=== PATIENT | male | born 1960 | race Caucasian/White ===

== ENCOUNTER → 2017-12-12 15:25 | Outpatient (CLI) | payer OTHER, SELFPAY ==
--- NOTE | 2017-12-12 15:32 | XR_ITS ---
EXAM: XR thoracic spine 3V HISTORY: ITS.REASON: POSTERIOR THORACIC CHEST PAIN, SHORTNESS OF AIR Comparison: None FINDINGS: Normal alignment. No fracture or dislocation evident. There is mild multilevel degenerative disc disease from T6 to T12. There is slight decrease in height anteriorly of T10 which appears chronic. No lytic or blastic change. Multilevel anterior osteophytes are present from T6 to T12 IMPRESSION: Thoracic spondylosis, no acute finding. Mild chronic wedging of T10
--- NOTE | 2017-12-12 15:32 | XR_ITS ---
XR chest 2V HISTORY: ITS.REASON: POSTERIOR THORACIC CHEST PAIN, SHORTNESS OF AIR ORDERING PHYSICIAN: Rickie Jang PATIENT AGE: 57 years COMPARISON: None FINDINGS: There is elevation of left hemidiaphragm. Unremarkable cardiovascular structures. Lungs are clear bilaterally. No effusions or infiltrates. There are degenerative changes of the thoracic spine. IMPRESSION: Elevated left hemidiaphragm, no acute finding
== END ==
PROVIDERS: PCP Internal Medicine; Visit Provider Internal Medicine
DX: R07.89 Other chest pain (principal); M54.6 Pain in thoracic spine; R06.02 Shortness of breath
CPT/HCPCS: 71046; 72072

== ENCOUNTER → 2017-12-19 15:07 | Outpatient (CLI) | payer OTHER, SELFPAY ==
[2017-12-19 16:10] LABS: Blood Urea Nitrogen 16 mg/dL (7-18); Creatinine,Serum 0.75 mg/dL (0.70-1.30); Estimated Glomerular Filt Rate 108 ml/min (>60); GFR (African American) 130 ML/MIN (>60)
== END ==
PROVIDERS: PCP Internal Medicine; Visit Provider Internal Medicine
DX: M54.6 Pain in thoracic spine (principal); R07.9 Chest pain, unspecified; Z85.820 Personal history of malignant melanoma of skin
CPT/HCPCS: 36415; 82565; 84520

== ENCOUNTER → 2017-12-26 08:35 | Outpatient (CLI) | payer OTHER, SELFPAY ==
--- NOTE | 2017-12-26 08:44 | CT_ITS ---
CT thoracic spine wo con INDICATION: ITS.REASON: THORACIC PAIN ORDERING PHYSICIAN: Rickie Jang PATIENT AGE: 57 years COMPARISON: None TECHNIQUE: Axial images are obtained without contrast. Sagittal and coronal reformatted images are reviewed as well. All CT scans at the facility use one or more dose reduction, viz: automated exposure control, ma/kV adjustment per patient size (including targeted exams where dose is matched to indication, i.e. head), or iterative reconstruction technique. FINDINGS: There is normal alignment. No acute fracture or dislocation is evident. There is mild multilevel thoracic spondylosis with slight decrease in the disc space and endplate osteophytes from T2 to T12. There is slight decrease in height anteriorly at T8-T12. This appears chronic. No cortical disruption is evident. Right anterior lateral bridging osteophytes are present from T3 to T12. No lytic or blastic change. No soft tissue abnormalities. IMPRESSION: 1. Mild multilevel spondylosis with degenerative disc disease and osteophytosis with mild chronic decrease in height at T8-T12. 2. No acute fracture. 3. No lytic or blastic change
--- NOTE | 2017-12-26 08:45 | CT_ITS ---
CT chest w con HISTORY: ITS.REASON: CHEST PAIN, HX MALIGNANT MELANOMA ORDERING PHYSICIAN: Rickie Jang PATIENT AGE: 57 years COMPARISON: None TECHNIQUE: Axial images obtained following the administration of 75 mL of Isovue 370 . Sagittal, and coronal reformatted images are also generated and reviewed. All CT scans at the facility use one or more dose reduction, viz: automated exposure control, ma/kV adjustment per patient size (including targeted exams where dose is matched to indication, i.e. head), or iterative reconstruction technique. FINDINGS: No mediastinal or hilar mass or adenopathy is evident. There are few scattered small nodes in the mediastinum. Coronary artery and mitral valve annular calcifications are noted. Normal heart size. No evidence of pericardial effusion. There are a few scattered subpleural nodular opacities 2 to 3 mm. These are nonspecific some of which are calcified. Minimal atelectatic or fibrotic changes are present in the lingula. A calcified granulomas present in the left lung base. No suspicious nodules are evident. No effusions or infiltrates. No acute bony anomalies. Upper abdominal images shows fatty liver with an oval area of increased density in the right hepatic lobe anteriorly. This could be due to some focal fatty sparing of the liver versus a hemangioma. IMPRESSION: 1. No convincing evidence of metastatic disease. 2. There are scattered subpleural 2 to 3 mm nodular opacity some of which are calcified and may be related to old granulomatous disease. Consider 6 month follow-up in this patient with history of melanoma to confirm stability. 3. Coronary artery calcification. 4. Other nonacute findings as described above
== END ==
PROVIDERS: Family Provider Internal Medicine; PCP Internal Medicine; Visit Provider Internal Medicine
DX: M54.6 Pain in thoracic spine (principal); R07.9 Chest pain, unspecified; Z85.820 Personal history of malignant melanoma of skin
CPT/HCPCS: 71260; 72128; Q9967

== ENCOUNTER → 2018-01-11 06:21 | Outpatient (CLI) | payer OTHER, SELFPAY ==
--- NOTE | 2018-01-11 06:22 | CI_ITS ---
Cerebrovascular Exam Indications: 785.9 Bruit. IMPRESSIONS 1. The bilateral vertebral arteries are patent with normal antegrade flow. 2. Study suggests less than 20% stenosis involving the right internal carotid artery and the left internal carotid artery. History: A bruit of the left carotid artery. A bruit of the right carotid artery. Coronary artery disease. Risk factors: Former smoker - years since quittinyr. Hypertension. Hyperlipidemia. Carotid duplex study. Complete study and Doppler flow study including spectral analysis, color and becker scale imaging. Location: Vascular laboratory. Patient status: Outpatient. Tables: Arterial flow: + +--------+--------+ Location V sys V ed + +--------+--------+ Right CCA - proximal 115cm/s 25.1cm/s + +--------+--------+ Right CCA - distal 69.8cm/s 24.5cm/s + +--------+--------+ Right ECA 146cm/s -------- + +--------+--------+ Right ICA - proximal 37.3cm/s 16.2cm/s + +--------+--------+ Right ICA - mid 54.2cm/s 23.9cm/s + +--------+--------+ Right ICA - distal 44.7cm/s 18.3cm/s + +--------+--------+ Right vertebral 38.5cm/s -------- + +--------+--------+ Left CCA - proximal 99cm/s 20.4cm/s + +--------+--------+ Left CCA - distal 111cm/s 24.4cm/s + +--------+--------+ Left ECA 117cm/s -------- + +--------+--------+ Left ICA - proximal 57.8cm/s 15.7cm/s + +--------+--------+ Left ICA - mid 49.9cm/s 21.5cm/s + +--------+--------+ Left ICA - distal 58.2cm/s 24.9cm/s + +--------+--------+ Left vertebral 38.1cm/s -------- + +--------+--------+ Velocity ratios: + + + + + + Right, V sys Right, V ed Left, V sys Left, V ed + + + + + + Max ICA/dist CCA 0.78 0.98 0.52 1.02 + + + + + + (Report amended ) Electronically signed by: Jovani Barros [id number]
--- NOTE | 2018-01-11 06:22 | CA_ITS ---
PROCEDURE: 2-D M-mode and color Doppler study INDICATIONS FOR THE TEST: Chest pain COPD Heart Murmur Tobacco Smokinghx Palpitations Fatigue Syncope Edema Hypertension+Diabetes Mellitus+ Rheumatic Fever SOB+APONTE Obesity Hyperlipidemia+ Family History HD Additional History Coronary artery calcification seen on CT, melanoma, GERD, hepatitis PATIENT INFORMATION HEIGHT: 69 WEIGHT: 309 GENDER: Male B/P: 144/83 2-D/M-MODE INTERPRETATION: 2-D MEASUREMENTS OBSERVED VALUES IN CMS Right Ventricular Dimension (RVDd) 2.8 Interventricular Septum (Thickness)(IVsd) 1.2 Left Ventricular Internal Dimensions(LVIDd) 3.0 Left Ventricular Posterior Wall (Thickness)(LVPWd) 1.2 Aortic Root 3.1 Aortic Cusp Separation 2.3 Left Atrial Dimensions (LAD) 3.8 2D 1. Technically difficult study because of the patient's factor and poor acoustic windows, Definity contrast was utilized to delineate endocardial surfaces. 2. Left atrium is mildly enlarged, left ventricle is normal size, mild concentric left ventricular hypertrophy, visually estimated ejection fraction 55% with no regional wall motion abnormality. 3. The right atrium is normal size, right ventricle is mildly enlarged with normal contractility. 4. The aortic valve is minimally thickened and fibrosed. 5. The mitral and tricuspid valve are grossly normal. 6. No significant pericardial effusion noted. 7. Pulmonic valve is poorly visualized. DOPPLER INTERROGATION: Doppler interrogation of the aortic, mitral and tricuspid valvular presence of mild mitral and tricuspid regurgitation, tricuspid regurgitation jet velocity is inadequate for calculation of the right ventricular systolic pressure, grade 1 diastolic dysfunction seen with tissue Doppler evidence of raised left atrial pressure. CONCLUSION: 1. Mildly enlarged left atrium, normal left ventricular size, mild concentric left ventricular hypertrophy, visually estimated ejection fraction 55% with no regional wall motion abnormality, grade 1 diastolic dysfunction seen with tissue Doppler evidence of raised left atrial pressure. 2. Mild mitral and tricuspid regurgitation 3. No significant pericardial effusion noted.
--- NOTE | 2018-01-11 06:22 | NM_ITS ---
History and Indications: Coronary artery disease, hypertension, diabetes, hyperlipidemia, family history shortness of breath and fatigue Procedure: Patient exercised on Garret protocol 6 minutes, resting heart rate was 79 beats per resting blood pressure 171/97, with exercise maximum heart rate achieved was its per minute which is equal to 93% of the maximum predicted heart rate and a blood pressure was 220/80. Test was started due to shortness of breath and fatigue patient denied complained of chest pain. Patient has adequate exercise capacity achieved 7mets of workload on treadmill, the blood pressure response to exercise was hypertensive. Electrocardiogram: Resting electrocardiogram showed sinus rhythm, with exercise occasional premature ventricular complexes seen, less than 1.[address] segment depression noted from the baseline EKG. The EKG portion of the exercise Myoview is negative for ischemia. Cardiac stress and resting SPECT images: Cardiac stress and rest SPECT images were obtained using technetium 99 Myoview 31.8 mCi stress and 10.5 mCi at rest gated SPECT further analysis of segmental wall motion and calculation of the ejection fraction also done. Cardiac stress and rest images show decreased tracer activity in the inferior and posterobasal wall which improves on the resting images suggestive of reversible ischemia, computer derived ejection fraction 54% with no regional wall motion abnormality, right ventricle is normal size and contractility. Conclusion: 1. The EKG portion of the exercise Myoview is negative for ischemia, patient has adequate exercise capacity achieved 7mets of workload on treadmill, the blood pressure response to exercise was hypertensive, there was no exercise-induced chest discomfort, test was started due to shortness of breath 2. Scintigraphic evidence of mild reversible ischemia involving the inferior and posterobasal wall, right ventricle is normal size and contractility. Computer derived ejection fraction is 54% with no regional wall motion abnormality. 3. Abnormal exercise Myoview study.
--- NOTE | 2018-01-11 07:12 | HMH.ITSHM ---
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 []METFORMIN GLIMEPIRIDE ATORVASTATIN NAPROXEN
== END ==
PROVIDERS: PCP Internal Medicine; Visit Provider Internal Medicine Cardiovascular Disease
DX: E11.9 Type 2 diabetes mellitus without complications (principal); E78.5 Hyperlipidemia, unspecified; I10 Essential (primary) hypertension; I25.10 Atherosclerotic heart disease of native coronary artery without angina pectoris; K21.9 Gastro-esophageal reflux disease without esophagitis; R09.89 Other specified symptoms and signs involving the circulatory and respiratory systems; Z85.820 Personal history of malignant melanoma of skin
CPT/HCPCS: 78452; 93017; 93306; 93880; A9502

== ENCOUNTER → 2018-01-13 10:34 | Outpatient (CLI) | payer OTHER, SELFPAY ==
[2018-01-13 13:22] LABS: Alanine Aminotransferase 51 U/L (12-78); Albumin Level 3.7 gm/dL (3.4-5.0); Alkaline Phosphatase 81 U/L (46-116); Anion Gap 15.6 mEq/L (5-15); Aspartate Amino Transferase 29 U/L (15-37); Bilirubin,Total 0.6 mg/dL (0.2-1.0); Blood Urea Nitrogen 9 mg/dL (7-18); Calcium 8.8 mg/dL (8.5-10.1); Carbon Dioxide 28 mmol/L (21.0-32.0); Chloride 100 mmol/L (98-107); Chol/HDL Ratio 3.8 (1-3.5); Cholesterol 123 mg/dL (140-200); Estimated Glomerular Filt Rate 139 ml/min (>60); GFR (African American) 169 ML/MIN (>60); Globulin 3.6 gm/dl (1.3-3.2); Glucose 100 mg/dL (74-106); HDL Cholesterol 32 mg/dL (27-67); LDL Cholesterol 67 mg/dL (0-130); Sodium 139 mmol/L (136-145); Total Protein,Serum 7.3 gm/dL (6.4-8.2); Triglycerides 122 mg/dL (30-200); VLDL Cholesterol 24 mg/dL (0-40)
[2018-01-13 13:23] LABS: Potassium 4.6 mmoL/L (3.5-5.1)
[2018-01-14 12:16] LABS: Microalbumin, Urine <3.0 ug/mL (Not Estab.)
== END ==
PROVIDERS: PCP Internal Medicine; Visit Provider Internal Medicine
DX: E11.9 Type 2 diabetes mellitus without complications (principal); E66.01 Morbid (severe) obesity due to excess calories; I10 Essential (primary) hypertension
CPT/HCPCS: 36415; 80053; 80061; 82043; 83036

== ENCOUNTER → 2018-01-30 15:04 | Outpatient (CLI) | payer OTHER, SELFPAY | PROVIDERS: PCP Internal Medicine; Visit Provider Internal Medicine Cardiovascular Disease | DX: R06.83 Snoring (principal); E11.9 Type 2 diabetes mellitus without complications; E78.5 Hyperlipidemia, unspecified; I10 Essential (primary) hypertension; I25.10 Atherosclerotic heart disease of native coronary artery without angina pectoris; K21.9 Gastro-esophageal reflux disease without esophagitis; R09.89 Other specified symptoms and signs involving the circulatory and respiratory systems; Z85.820 Personal history of malignant melanoma of skin | CPT/HCPCS: 95806 ==

== ENCOUNTER → 2018-05-01 13:47 | Outpatient (CLI) | payer BC, SELFPAY | PROVIDERS: Visit Provider Specialist | DX: G47.33 Obstructive sleep apnea (adult) (pediatric) (principal) | CPT/HCPCS: 94762 ==

== ENCOUNTER → 2019-11-09 08:47 | Outpatient (CLI) | payer BC, SELFPAY ==
--- NOTE | 2019-11-09 08:51 | XR_ITS ---
PROCEDURE: XR FOOT WT BEARING RT 3V CLINICAL INDICATION: pain ball of right foot COMPARISON: CR XR FOOT WT BEARING LT 3V from 11/09/2019 FINDINGS: There is moderate hallux valgus with partial subluxation of the proximal phalanx in relationship to the head of the 1st metatarsal. There is soft tissue prominence over the metatarsal head is consistent with a bunion. The remaining metatarsals in all of phalanges appear intact. There is flattening of the plantar arch and there is a small spur of the calcaneus at the insertion of the plantar tendon. The joint spaces are well-preserved. No significant degenerative/arthritic changes. No erosive changes evident. IMPRESSION: Mild to moderate hallux valgus with pes planus Dictated by: Dr. Jerry Muñoz MD 11/09/2019 10:45 Dr. Jerry Muñoz MD in [place] 11/09/2019 10:45
--- NOTE | 2019-11-09 08:51 | XR_ITS ---
PROCEDURE: XR FOOT WT BEARING LT 3V CLINICAL INDICATION: pain comparison views left foot, patient complaining of right foot pain but no left foot pain COMPARISON: CR XR FOOT WT BEARING RT 3V from 11/09/2019 FINDINGS: No fracture or dislocation. No lytic or blastic change. There is normal mineralization. The joint spaces are well-preserved. No significant degenerative/arthritic changes. No erosive changes evident. Other findings:There is a small spur of the calcaneus at the insertion of the plantar tendon. There is mild flattening of the plantar arch. IMPRESSION: Small calcaneal spur and mild pes planus but less than right foot. Dictated by: Dr. Jerry Muñoz MD 11/09/2019 10:47 Dr. Jerry Muñoz MD in [place] 11/09/2019 10:47
== END ==
PROVIDERS: PCP Internal Medicine; Visit Provider Podiatrist
DX: M79.673 Pain in unspecified foot (principal)
CPT/HCPCS: 73630

== ENCOUNTER 2020-02-02 10:16 | Emergency (ER) | payer BC, SELFPAY ==
[2020-02-02 10:26] VITALS: BP 186/84; PULSE 84; RESP 16; O2SAT 98; BMI 44.3
--- NOTE | 2020-02-02 10:41 | HMH.EDUTC ---
[facility] [place] Clinical Impression: Encounter for laboratory testing for COVID-19 virus, Exposure to COVID-19 virus Disposition: Home, Self-Care Condition on Discharge: Good Instructions: Preventing the Spread of Coronavirus Discharge Instructions Additional Instructions: *Monitor Temp, Over the counter Motrin or Tylenol as directed/as needed Tylenol every 4 hours and Motrin every 6 hours (as long as your family doctor has told you that you can take it) for fever or pain. and straight to ER if unable to lower temp less than 101.0 after medication given *Warm salt water gargles may help to soothe the throat *Throat Lozenges *Warm fluids like tea with honey may help to soothe the throat *Sleep elevated *Humidifier/Vaporizer Follow up IMMEDIATELY for new or worsening symptoms or no Noticeable improvement over the next 48-72 hours. 911 for difficulty breathing or swallowing You was tested for today for COVID19 your test result should be back in the next 24-48 hours, you may call to the [facility] later today or tomorrow to see if your test results are back and the result [phone] [facility] hours are 9am-9pm You was given a handout with instructions for Self Quarantine and Self isolation for while you wait on test results and what to do if they are positive If you are positive the Health Dept will be contacting you also Referrals: Rickie Jang [Primary Care Provider] - As needed Forms: Work/School Release Time of Disposition: 10:42 Medical Decision Making - Jorgito Inquiry Pt receiving controlled substance: No Jorgito was queried for this patient: No Vital Signs: 02/02/20 10:26 Pulse Rate [Radial] 84 Respiratory Rate 16 Blood Pressure [Right Arm] 186/84 H Blood Pressure Mean [Right Arm] 118 Blood Pressure Source [Right Arm] Automatic Cuff Blood Pressure Position [Right Arm] Sitting 02 Sat by Pulse Oximetry 98 Oxygen Delivery Method Room Air Orders (Tests/Meds): ORDERS Category Date Time Status Covid-19 Nasal PCR ([facility]) Routine Lab 02/02/20 10:17 Ordered [facility] [place] - General Stated complaint: Covid test Time Seen by Provider: 02/02/20 10:41 Mode of Arrival: Ambulatory Source of Information: Patient Limitations: No Limitations Description of Symptoms (Recalled from Triage Doc. by RN): covid test. no symptoms HEENT Symptoms (Recalled from RN notes): No Resp Symptoms (Recalled from RN notes): No Skin Symptoms (Recalled from RN notes): No MS Symptoms (Recalled from RN notes): No Functional Status (Recalled from RN notes): wnl - History of Present Illness Provider Complaint: Patient state that he was recently around a friend that has since tested positive for COVID States that he isnt having any symptoms but wanted to get tested for COVID due to exposure - Related Data Home Medications Medication Instructions Recorded Confirmed atorvastatin 10 mg tablet 10 mg PO DAILY 12/29/17 01/01/20 metformin 500 mg tablet 500 mg PO BID 12/29/17 01/01/20 aspirin 81 mg tablet,delayed 81 mg PO DAILY 01/31/18 01/01/20 release glimepiride 4 mg tablet 4 mg PO DAILY tab 04/30/19 01/01/20 Previous Rx's Medication Instructions Recorded lisinopril 10 mg tablet 10 mg PO DAILY #90 tab 07/12/19 diclofenac sodium 1 % topical gel 4 g TOPICAL QID PRN 30 Days #100 g 01/01/20 metoprolol succinate 100 mg 100 mg PO DAILY #90 tab 01/17/20 tablet,extended release 24 hr Allergies Allergy/AdvReac Type Severity Reaction Status Date / Time No Known Allergies Allergy Verified 01/10/20 13:23 - Worker's Comp Is this a Worker's Comp case?: No [facility] History - Hepatitis A Screen Drug use history?: No High risk sexual behaviors?: No History of sexually transmitted infection?: No Currently employed?: No Childcare worker?: No Do you have indoor plumbing?: Yes Do you have electricity?: Yes Attestation statement:: This patient has been screened for Hepatitis A risk factors. I have reviewed the patient's past medica
[2020-02-02 10:55] VITALS: BP 186/84; PULSE 84; RESP 16; TEMP 36.9; O2SAT 98
[2020-02-02 17:06] LABS: Adenovirus,PCR Not Detected (NotDetected); Bordetella Pertussis Not Detected (NotDetected); Chlamydophila Pneumoniae, PCR Not Detected (NotDetected); Coronavirus 229E Not Detected (NotDetected); Coronavirus NL63 Not Detected (NotDetected); Coronavirus OC43 Not Detected (NotDetected); Coronovirus HKU1,PCR Not Detected (NotDetected); Human Metapneumovirus Not Detected (NotDetected); Influenza A, PCR Not Detected (NotDetected); Influenza AH1, 2009 Not Detected (NotDetected); Influenza AH1, PCR Not Detected (NotDetected); Influenza AH3,PCR Not Detected (NotDetected); Influenza B, PCR Not Detected (NotDetected); Mycoplasma Pneumoniae, PCR Not Detected (NotDetected); Parainfluenza 1, PCR Not Detected (NotDetected); Parainfluenza 2, PCR Not Detected (NotDetected); Parainfluenza 3, PCR Not Detected (NotDetected); Parainfluenza 4, PCR Not Detected (NotDetected); Respiratory Syncytial Virus Not Detected (NotDetected); Rhinovirus/Enterovirus Not Detected (NotDetected)
[2020-02-02 17:07] LABS: Coronavirus 19, PCR Detected (NotDetected)
--- NOTE | 2020-02-02 17:14 | PC.NURSE ---
Patient notified of positive COVID results. Educated on quarantine.
== END 2020-02-02 10:56 | disposition home or self-care (01) ==
PROVIDERS: Emergency Provider Nurse Practitioner; PCP Internal Medicine
DX: U07.1 COVID-19 (principal); E11.9 Type 2 diabetes mellitus without complications; K21.9 Gastro-esophageal reflux disease without esophagitis; E78.5 Hyperlipidemia, unspecified; I10 Essential (primary) hypertension; Z79.899 Other long term (current) drug therapy
CPT/HCPCS: 87581; 87633; 87798; 99201; U0003

== ENCOUNTER 2020-02-11 10:27 | Emergency (ER) | payer BC, SELFPAY ==
[2020-02-11 11:45] VITALS: BP 167/98; PULSE 87; RESP 18; TEMP 37.1; O2SAT 98; BMI 43.2
--- NOTE | 2020-02-11 11:48 | HMH.EDUTC ---
[facility] [place] Disposition Clinical Impression: Encounter for laboratory testing for COVID-19 virus Disposition: Home, Self-Care Condition on Discharge: Good Instructions: Preventing the Spread of Coronavirus Discharge Instructions Additional Instructions: *Monitor Temp, Over the counter Motrin or Tylenol as directed/as needed Tylenol every 4 hours and Motrin every 6 hours (as long as your family doctor has told you that you can take it) for fever or pain. and straight to ER if unable to lower temp less than 101.0 after medication given *Warm salt water gargles may help to soothe the throat *Throat Lozenges *Warm fluids like tea with honey may help to soothe the throat *Sleep elevated *Humidifier/Vaporizer Follow up IMMEDIATELY for new or worsening symptoms or no Noticeable improvement over the next 48-72 hours. 911 for difficulty breathing or swallowing You were tested for today for COVID19 your test result should be back in the next 24-48 hours, you may call to the [facility] to see if your test results are back in the next 48 hours [phone] [facility] hours are 9am-9pm You was given a handout with instructions for Self Quarantine and Self isolation for while you wait on test results and what to do if they are positive If you are positive the Health Dept will be contacting you also Referrals: Rickie Jang [Primary Care Provider] - As needed Forms: Work/School Release Time of Disposition: 11:50 Medical Decision Making - Jorgito Inquiry Pt receiving controlled substance: No Jorgito was queried for this patient: No Vital Signs: 02/11/20 11:45 Temperature 98.7 F Temperature Source Oral Pulse Rate [Left] 87 Respiratory Rate 18 Blood Pressure [Right Arm] 167/98 H Blood Pressure Mean [Right Arm] 121 Blood Pressure Source [Right Arm] Automatic Cuff Blood Pressure Position [Right Arm] Sitting 02 Sat by Pulse Oximetry 98 Oxygen Delivery Method Room Air Orders (Tests/Meds): ORDERS Category Date Time Status Covid-19 Nasal PCR Sendout [facility] 02/11/20 11:28 Ordered [facility] [place] HPI - General Stated complaint: wants covid test Time Seen by Provider: 02/11/20 11:48 Mode of Arrival: Ambulatory Source of Information: Patient Limitations: No Limitations Description of Symptoms (Recalled from Triage Doc. by RN): Covid test asymptomatic-recently positive but need test for work HEENT Symptoms (Recalled from RN notes): No Resp Symptoms (Recalled from RN notes): No Skin Symptoms (Recalled from RN notes): No MS Symptoms (Recalled from RN notes): No Functional Status (Recalled from RN notes): wnl - History of Present Illness Provider Complaint: Patient state that he recently tested positive for COVID and has been in quarantine State that his quarantine is up and his work wanted him to get tested again for COVID Denies any symptoms - Related Data Home Medications Medication Instructions Recorded Confirmed atorvastatin 10 mg tablet 10 mg PO DAILY 12/29/17 01/01/20 metformin 500 mg tablet 500 mg PO BID 12/29/17 01/01/20 aspirin 81 mg tablet,delayed 81 mg PO DAILY 01/31/18 01/01/20 release glimepiride 4 mg tablet 4 mg PO DAILY tab 04/30/19 01/01/20 Previous Rx's Medication Instructions Recorded lisinopril 10 mg tablet 10 mg PO DAILY #90 tab 07/12/19 diclofenac sodium 1 % topical gel 4 g TOPICAL QID PRN 30 Days #100 g 01/01/20 metoprolol succinate 100 mg 100 mg PO DAILY #90 tab 01/17/20 tablet,extended release 24 hr Allergies Allergy/AdvReac Type Severity Reaction Status Date / Time No Known Allergies Allergy Verified 01/10/20 13:23 - Worker's Comp Is this a Worker's Comp case?: No Is this an H Worker's Comp?: No Is this a [place] Worker's Comp?: No [facility] History - Hepatitis A Screen Drug use history?: No High risk sexual behaviors?: No History of sexually transmitted infection?: No Currently employed?: No Childcare worker?: No Do you have indoor plumbing?: Yes Do you have electricity?: Yes
[2020-02-11 11:49] VITALS: BP 167/98; PULSE 87; RESP 18; TEMP 37.1; O2SAT 98
[2020-02-12 12:57] LABS: Covid-19 Nasal PCR Sendout Lex Not Detected
== END 2020-02-11 12:15 | disposition home or self-care (01) ==
PROVIDERS: Emergency Provider Nurse Practitioner; PCP Internal Medicine
DX: Z20.828 Contact with and (suspected) exposure to other viral communicable diseases (principal)
CPT/HCPCS: 99201; U0004

== ENCOUNTER → 2020-10-22 18:25 | Outpatient (CLI) | payer BC, SELFPAY ==
[2020-10-22 19:38] LABS: Chloride 98 mmol/L (98-107)
[2020-10-22 19:39] LABS: Potassium 4.5 mmoL/L (3.5-5.1); Sodium 137 mmol/L (136-145)
[2020-10-22 19:41] LABS: Alanine Aminotransferase 46 U/L (12-78); Albumin Level 4.4 g/dl (3.5-5.0); Albumin/Globulin Ratio 1.5 (1.1-1.8); Alkaline Phosphatase 79 U/L (38-126); Anion Gap 13.5 mEq/L (5-15); Aspartate Amino Transferase 41 U/L (17-59); Bilirubin,Total 0.7 mg/dl (0.2-1.3); Blood Urea Nitrogen 12 mg/dl (9-20); Carbon Dioxide 30 mmol/L (22.0-30.0); Estimated Glomerular Filt Rate 138 ml/min (>60); GFR (African American) 167 ML/MIN (>60); Globulin 2.9 g/dL (1.3-3.2); Total Protein,Serum 7.3 g/dl (6.3-8.2)
[2020-10-22 19:42] LABS: Calcium 9.2 mg/dl (8.4-10.2); Chol/HDL Ratio 4.1 (1-3.5); Cholesterol 132 mg/dl (140-200); Glucose 115 mg/dl (74-100); HDL Cholesterol 32 mg/dl (40-60); Triglycerides 171 mg/dl (30-150); VLDL Cholesterol 34 mg/dL (0-40)
[2020-10-22 19:53] LABS: Direct LDL Cholesterol 76.83 mg/dL (100-129)
[2020-10-22 21:42] LABS: Hemoglobin A1C 8.6 % (4.0-6.0)
== END ==
PROVIDERS: Visit Provider Internal Medicine
DX: I25.10 Atherosclerotic heart disease of native coronary artery without angina pectoris (principal); I10 Essential (primary) hypertension; E78.5 Hyperlipidemia, unspecified; E11.59 Type 2 diabetes mellitus with other circulatory complications; Z79.84 Long term (current) use of oral hypoglycemic drugs
CPT/HCPCS: 80053; 80061; 83036

== ENCOUNTER → 2021-04-24 14:09 | Outpatient (CLI) | payer BC, SELFPAY ==
[2021-04-24 15:39] LABS: Basophils # 0.1 K/mm3 (0-0.2); Basophils % 0.6 % (0.1-2.0); Eosinophils # 0.2 K/mm3 (0.0-0.4); Eosinophils % 1.7 % (0.1-12.0); Hemoglobin 15.6 g/dL (14.1-18.0); Lymphocytes # 2.8 K/mm3 (0.7-4.5); Lymphocytes % 28.7 % (10-50); Mean Corpuscular HGB Conc 33.9 g/dL (31.8-35.4); Mean Corpuscular Hemoglobin 30.3 pg (27.0-31.2); Mean Corpuscular Volume 89.4 fl (80-94); Mean Platelet Volume 7.8 fl (7.4-10.4); Monocytes # 0.6 K/mm3 (0.1-1.0); Monocytes % 6.2 % (1.7-9.3); Neutrophils # 6.2 K/mm3 (1.8-7.8); Neutrophils % 62.9 % (37.0-80.0); Platelet Count 351 K/mm3 (142-424); Red Blood Count 5.15 M/mm3 (4.60-6.20); Red Cell Distribution Width 12.9 % (11.5-17.5); White Blood Count 9.9 K/mm3 (4.8-10.8)
[2021-04-24 16:02] LABS: Microalbumin < 6.000 mg/L (0-16.7)
[2021-04-24 16:06] LABS: Hemoglobin A1C 7.6 % (4.0-6.0)
[2021-04-24 18:26] LABS: Alanine Aminotransferase 32 U/L (12-78); Albumin Level 4.4 g/dl (3.5-5.0); Albumin/Globulin Ratio 1.6 (1.1-1.8); Alkaline Phosphatase 66 U/L (38-126); Anion Gap 13.4 mEq/L (5-15); Aspartate Amino Transferase 29 U/L (17-59); Bilirubin,Total 0.7 mg/dl (0.2-1.3); Blood Urea Nitrogen 12 mg/dl (9-20); Carbon Dioxide 29 mmol/L (22.0-30.0); Chloride 98 mmol/L (98-107); Chol/HDL Ratio 4.1 (1-3.5); Cholesterol 138 mg/dl (140-200); Estimated Glomerular Filt Rate 170 ml/min (>60); GFR (African American) 205 ML/MIN (>60); Globulin 2.7 g/dL (1.3-3.2); Glucose 81 mg/dl (74-100); HDL Cholesterol 34 mg/dl (40-60); Potassium 4.4 mmoL/L (3.5-5.1); Sodium 136 mmol/L (136-145); Total Protein,Serum 7.1 g/dl (6.3-8.2); Triglycerides 144 mg/dl (30-150); VLDL Cholesterol 29 mg/dL (0-40)
[2021-04-24 18:38] LABS: Direct LDL Cholesterol 80.59 mg/dL (100-129)
[2021-04-24 18:57] LABS: Prostate Specific Ag Screen 2.3 ng/ml (0.0-4.0)
== END ==
PROVIDERS: Visit Provider Internal Medicine
DX: I25.10 Atherosclerotic heart disease of native coronary artery without angina pectoris (principal); I10 Essential (primary) hypertension; E11.9 Type 2 diabetes mellitus without complications; E78.5 Hyperlipidemia, unspecified; Z12.5 Encounter for screening for malignant neoplasm of prostate; Z79.84 Long term (current) use of oral hypoglycemic drugs
CPT/HCPCS: 80053; 80061; 82043; 83036; 85025; G0103

== ENCOUNTER → 2021-10-21 16:45 | Outpatient (CLI) | payer BC, SELFPAY ==
[2021-10-21 17:42] LABS: Alanine Aminotransferase 38 U/L (12-78); Albumin Level 3.9 g/dl (3.5-5.0); Albumin/Globulin Ratio 1.4 (1.1-1.8); Alkaline Phosphatase 87 U/L (38-126); Anion Gap 10.4 mEq/L (5-15); Aspartate Amino Transferase 36 U/L (17-59); Bilirubin,Total 0.4 mg/dl (0.2-1.3); Blood Urea Nitrogen 11 mg/dl (9-20); Calcium 9.2 mg/dl (8.4-10.2); Carbon Dioxide 29 mmol/L (22.0-30.0); Chloride 99 mmol/L (98-107); Chol/HDL Ratio 3.5 (1-3.5); Cholesterol 120 mg/dl (140-200); Estimated Glomerular Filt Rate 137 ml/min (>60); GFR (African American) 166 ML/MIN (>60); Globulin 2.8 g/dL (1.3-3.2); Glucose 93 mg/dl (74-100); HDL Cholesterol 34 mg/dl (40-60); Potassium 4.4 mmoL/L (3.5-5.1); Sodium 134 mmol/L (136-145); Total Protein,Serum 6.7 g/dl (6.3-8.2); Triglycerides 101 mg/dl (30-150); VLDL Cholesterol 20 mg/dL (0-40)
[2021-10-21 17:53] LABS: Hemoglobin A1C 8.7 % (4.0-6.0)
[2021-10-23 08:21] LABS: Direct LDL Cholesterol 61 mg/dL (100-129)
== END ==
PROVIDERS: PCP Internal Medicine; Visit Provider Internal Medicine
DX: E11.59 Type 2 diabetes mellitus with other circulatory complications (principal); E11.42 Type 2 diabetes mellitus with diabetic polyneuropathy; I10 Essential (primary) hypertension; E78.5 Hyperlipidemia, unspecified
CPT/HCPCS: 80053; 80061; 83036

== ENCOUNTER → 2022-04-23 12:40 | Outpatient (CLI) | payer BC, SELFPAY ==
[2022-04-23 13:19] LABS: Basophils # 0.1 K/mm3 (0-0.2); Basophils % 0.7 % (0.1-2.0); Eosinophils # 0.2 K/mm3 (0.0-0.4); Eosinophils % 1.8 % (0.1-12.0); Hematocrit 48.2 % (42.0-52.0); Hemoglobin 15.7 g/dL (14.1-18.0); Lymphocytes # 2.5 K/mm3 (0.7-4.5); Lymphocytes % 26.6 % (10-50); Mean Corpuscular HGB Conc 32.5 g/dL (31.8-35.4); Mean Corpuscular Hemoglobin 28.8 pg (27.0-31.2); Mean Corpuscular Volume 88.6 fl (80-94); Mean Platelet Volume 9.4 fl (7.4-10.4); Monocytes # 0.6 K/mm3 (0.1-1.0); Monocytes % 6.6 % (1.7-9.3); Neutrophils % 64.3 % (37.0-80.0); Platelet Count 328 K/mm3 (142-424); Red Blood Count 5.44 M/mm3 (4.60-6.20); Red Cell Distribution Width 13.4 % (11.5-17.5); White Blood Count 9.3 K/mm3 (4.8-10.8)
[2022-04-23 14:01] LABS: Alanine Aminotransferase 34 U/L (12-78); Albumin Level 4.2 g/dl (3.5-5.0); Albumin/Globulin Ratio 1.4 (1.1-1.8); Alkaline Phosphatase 79 U/L (38-126); Anion Gap 10.7 mEq/L (5-15); Aspartate Amino Transferase 29 U/L (17-59); Bilirubin,Total 0.8 mg/dl (0.2-1.3); Blood Urea Nitrogen 11 mg/dl (9-20); Calcium 8.9 mg/dl (8.4-10.2); Carbon Dioxide 30 mmol/L (22.0-30.0); Chloride 100 mmol/L (98-107); Chol/HDL Ratio 4.2 (1-3.5); Cholesterol 125 mg/dl (140-200); Estimated Glomerular Filt Rate 137 ml/min (>60); GFR (African American) 166 ML/MIN (>60); Globulin 2.9 g/dL (1.3-3.2); Glucose 161 mg/dl (74-100); HDL Cholesterol 30 mg/dl (40-60); Potassium 4.7 mmoL/L (3.5-5.1); Sodium 136 mmol/L (136-145); Total Protein,Serum 7.1 g/dl (6.3-8.2); Triglycerides 180 mg/dl (30-150); VLDL Cholesterol 36 mg/dL (0-40)
[2022-04-23 14:12] LABS: Direct LDL Cholesterol 71.98 mg/dL (100-129)
[2022-04-23 15:11] LABS: Hemoglobin A1C 9.4 % (4.0-6.0)
[2022-04-27 10:20] LABS: Creatinine,Urine Random 22 mg/dL (Not Estab.); Microalbumin < 6.000 mg/L (0-16.7); Microalbumin/Creatinine Ratio 27.2
== END ==
PROVIDERS: PCP Internal Medicine; Visit Provider Internal Medicine
DX: I25.10 Atherosclerotic heart disease of native coronary artery without angina pectoris (principal); I10 Essential (primary) hypertension; E78.5 Hyperlipidemia, unspecified; E11.59 Type 2 diabetes mellitus with other circulatory complications; E66.01 Morbid (severe) obesity due to excess calories; Z68.42 Body mass index [BMI] 45.0-49.9, adult; Z79.84 Long term (current) use of oral hypoglycemic drugs; Z12.5 Encounter for screening for malignant neoplasm of prostate
CPT/HCPCS: 80053; 80061; 81001; 82043; 82570; 83036; 85025; G0103

== ENCOUNTER → 2022-10-20 16:38 | Outpatient (CLI) | payer BC, SELFPAY ==
[2022-10-20 17:28] LABS: Hemoglobin A1C 9.4 % (4.0-6.0)
[2022-10-20 17:39] LABS: Alanine Aminotransferase 30 U/L (12-78); Albumin Level 4.1 g/dl (3.5-5.0); Albumin/Globulin Ratio 1.3 (1.1-1.8); Alkaline Phosphatase 84 U/L (38-126); Aspartate Amino Transferase 25 U/L (17-59); Bilirubin,Total 0.5 mg/dl (0.2-1.3); Blood Urea Nitrogen 13 mg/dl (9-20); Calcium 8.6 mg/dl (8.4-10.2); Carbon Dioxide 28 mmol/L (22.0-30.0); Chloride 97 mmol/L (98-107); Chol/HDL Ratio 5.6 (1-3.5); Cholesterol 156 mg/dl (140-200); Estimated Glomerular Filt Rate 169 ml/min (>60); GFR (African American) 205 ML/MIN (>60); Globulin 3.2 g/dL (1.3-3.2); Glucose 120 mg/dl (74-100); HDL Cholesterol 28 mg/dl (40-60); Sodium 135 mmol/L (136-145); Total Protein,Serum 7.3 g/dl (6.3-8.2); Triglycerides 240 mg/dl (30-150); VLDL Cholesterol 48 mg/dL (0-40)
[2022-10-20 17:51] LABS: Direct LDL Cholesterol 84.79 mg/dL (100-129)
== END ==
PROVIDERS: PCP Internal Medicine; Visit Provider Internal Medicine
DX: E11.42 Type 2 diabetes mellitus with diabetic polyneuropathy (principal); E11.59 Type 2 diabetes mellitus with other circulatory complications; I25.10 Atherosclerotic heart disease of native coronary artery without angina pectoris; I10 Essential (primary) hypertension; E78.5 Hyperlipidemia, unspecified; Z79.84 Long term (current) use of oral hypoglycemic drugs
CPT/HCPCS: 80053; 80061; 83036

== ENCOUNTER 2023-04-22 11:43 | Outpatient (CLI) | payer BC, SELFPAY ==
[2023-04-22 12:15] LABS: Basophils % 0.4 % (0.1-2.0); Eosinophils # 0.1 K/mm3 (0.0-0.4); Eosinophils % 1.5 % (0.1-12.0); Hematocrit 46.1 % (42.0-52.0); Lymphocytes # 2.1 K/mm3 (0.7-4.5); Lymphocytes % 24.5 % (10-50); Mean Corpuscular HGB Conc 34.7 g/dL (31.8-35.4); Mean Corpuscular Hemoglobin 30.8 pg (27.0-31.2); Mean Corpuscular Volume 88.8 fl (80-94); Mean Platelet Volume 8.7 fl (7.4-10.4); Monocytes # 0.6 K/mm3 (0.1-1.0); Neutrophils # 5.6 K/mm3 (1.8-7.8); Neutrophils % 66.6 % (37.0-80.0); Platelet Count 281 K/mm3 (142-424); Red Cell Distribution Width 13.5 % (11.5-17.5); White Blood Count 8.5 K/mm3 (4.8-10.8)
[2023-04-22 12:50] LABS: Alanine Aminotransferase 28 U/L (12-78); Albumin Level 4.2 g/dl (3.5-5.0); Albumin/Globulin Ratio 1.6 (1.1-1.8); Alkaline Phosphatase 67 U/L (38-126); Aspartate Amino Transferase 25 U/L (17-59); Bilirubin,Total 0.6 mg/dl (0.2-1.3); Blood Urea Nitrogen 13 mg/dl (9-20); Calcium 9.2 mg/dl (8.4-10.2); Carbon Dioxide 28 mmol/L (22.0-30.0); Chloride 100 mmol/L (98-107); Chol/HDL Ratio 4.3 (1-3.5); Cholesterol 128 mg/dl (140-200); Estimated Glomerular Filt Rate 137 ml/min (>60); GFR (African American) 165 ML/MIN (>60); Globulin 2.6 g/dL (1.3-3.2); Glucose 84 mg/dl (74-100); HDL Cholesterol 30 mg/dl (40-60); Sodium 135 mmol/L (136-145); Total Protein,Serum 6.8 g/dl (6.3-8.2); Triglycerides 121 mg/dl (30-150); VLDL Cholesterol 24 mg/dL (0-40)
== END 2023-04-22 23:59 ==
LOC: LAB.DROPOF 11:44
PROVIDERS: PCP Internal Medicine; Visit Provider Internal Medicine
DX: E11.59 Type 2 diabetes mellitus with other circulatory complications (principal); E66.01 Morbid (severe) obesity due to excess calories; E78.5 Hyperlipidemia, unspecified; I11.9 Hypertensive heart disease without heart failure; I25.10 Atherosclerotic heart disease of native coronary artery without angina pectoris; Z79.84 Long term (current) use of oral hypoglycemic drugs; Z79.85 Long-term (current) use of injectable non-insulin antidiabetic drugs; Z87.891 Personal history of nicotine dependence; Z68.42 Body mass index [BMI] 45.0-49.9, adult
CPT/HCPCS: 80053; 80061; 83036; 85025

== ENCOUNTER 2023-04-27 15:12 | Emergency (ER) | payer BC, SELFPAY ==
[2023-04-27 16:42] VITALS: BP 132/65; PULSE 91; RESP 18; TEMP 37.3; O2SAT 98; BMI 43.0
--- NOTE | 2023-04-27 16:45 | EXP.UTC ---
Discharge Plan Disposition Patient Disposition: Home, Self-Care Condition: Good Prescriptions Prescriptions: New amoxicillin-pot clavulanate 875-125 mg Tablet 1 tab PO Q12H 7 Days Qty: 14 0RF No Action atorvastatin 10 mg tablet 10 mg PO DAILY metformin 500 mg tablet 500 mg PO BID aspirin [Aspir-81] 81 mg tablet,delayed release (DR/EC) 81 mg PO DAILY glimepiride 4 mg tablet 4 mg PO DAILY Farxiga 10 mg tablet 10 mg PO DAILY metoprolol succinate 100 mg tablet extended release 24 hr 100 mg PO DAILY Qty: 90 3RF Ozempic 0.25 mg or 0.5 mg (2 mg/3 mL) pen injector 0.25 mg SQ WEEKLY Patient Comments: INJECT 0.25MG SUBCUTANEOUSLY ONCE A WEEK lisinopril 10 mg tablet See Rx Instructions .ROUTE .COMPLEX Qty: 90 5RF Dose Instruction: TAKE 1 TABLET BY MOUTH ONCE DAILY Rx Instructions: TAKE 1 TABLET BY MOUTH ONCE DAILY Referrals Follow up/Referrals: Rickie Jang MD [Primary Care Provider] - See instructions Activity Restrictions/Add. Instructions Additional Instructions/Restrictions: *Monitor Temp, Over the counter Motrin or Tylenol as directed/as needed Tylenol every 4 hours and Motrin every 6 hours (as long as your family doctor has told you that you can take it) for fever or pain. and straight to ER if unable to lower temp less than 101.0 after medication given *Warm salt water gargles may help to soothe the throat *Throat Lozenges? *Warm fluids like tea with honey may help to soothe the throat? *Sleep elevated *Humidifier/Vaporizer Follow up IMMEDIATELY for new or worsening symptoms or no Noticeable improvement over the next 48-72 hours. 911 for difficulty breathing or swallowing Clinical Impressions Clinical Impression: Sinusitis Qualifiers: Sinusitis location: unspecified location Chronicity: unspecified Qualified Code(s): J32.9 - Chronic sinusitis, unspecified Instructions Patient Instructions: Sinusitis, DI for Sinusitis Discharge ED Provider: Jeannine Baird [facility] General Stated complaint: poss sinus inf Time Seen by Provider: 04/27/23 16:45 History of Present Illness Provider Complaint: Patient states that he feels like he has a sinus infection States he started with some sinus congestion and pressure last week but has got worse since Tuesday States that he feels like it is draining in the back of his throat and making his throat feeling irritated and pressure behind his eyes so he came in to get checked Related Data Home Medications Medication Instructions Recorded Confirmed atorvastatin 10 mg tablet 10 mg PO DAILY 12/29/17 02/01/23 metformin 500 mg tablet 500 mg PO BID 12/29/17 02/01/23 aspirin 81 mg tablet,delayed 81 mg PO DAILY 01/31/18 02/01/23 release (Aspir-) glimepiride 4 mg tablet 4 mg PO DAILY 04/30/19 02/01/23 dapagliflozin propanediol 10 mg 10 mg PO DAILY 07/29/22 02/01/23 tablet (Farxiga) semaglutide 0.25 mg or 0.5 mg (2 0.25 mg SQ WEEKLY 02/01/23 02/01/23 mg/3 mL) subcutaneous pen injector ([facility]) Previous Rx's Medication Instructions Recorded lisinopril 10 mg tablet See Rx Instructions .Route 01/11/22 .COMPLEX #90 tabs metoprolol succinate 100 mg 100 mg PO DAILY #90 tabs 07/29/22 tablet,extended release 24 hr amoxicillin 875 mg-potassium 1 tab PO Q12H 7 days #14 tabs 04/27/23 clavulanate 125 mg tablet Allergies Allergy/AdvReac Type Severity Reaction Status Date / Time No Known Allergies Allergy Verified 02/01/23 15:11 [facility] Disclaimer: The information contained in this section may have been updated after the patient was seen, as this information can be updated by other users. Medical History Coronary artery calcification seen on CAT scan DM2 (diabetes mellitus, type 2) Gastroesophageal reflux disease History of melanoma HLD (hyperlipidemia) HTN (hypertension) Social History Smoking Status: Former smoker alcohol intake: never substance use type: denies use current occupational status: employed Travel in the last 8 weeks: None household members: family housing: house ROS Obtained: Yes All systems reviewed & no additional complaints except as documented and Yes Systems reviewed as appropriate & no additional complaints except as documented Constitutional Constitutional: Reports system reviewed and no additional complaints, except as documented, Reports as per HPI and Reports headache(s) ENT Ears, Nose, Mouth, and Throat: Reports system reviewed and no additional complaints, except as documented, Reports as per HPI, Reports headache(s), Reports sinus pain and Reports sinus pressure Cardiovascular Cardiovascular: Reports system reviewed and no additional complaints, except as documented and Reports as per HPI Respiratory Respiratory: Reports system reviewed and no additional complaints, except as documented and Reports as per HPI Gastrointestinal Gastrointestingal: Reports system reviewed and no additional complaints, except as documented and as per HPI Genitourinary Male Genitourinary: Reports system reviewed and no additional complaints, except as documented and Reports as per HPI Neurologic Neurologic: Reports headache(s) Physical Exam General General appearance: alert and in no apparent distress ENT ENT exam: Present mucous membranes moist Expanded ENT Exam Nose exam: Present sinus tenderness Throat exam: Present other (PND noted) Respiratory Respiratory exam: Present normal lung sounds bilaterally; Absent respiratory distress or wheezes Cardiovascular Cardiovascular exam: Present regular rate, normal rhythm and normal heart sounds Neurological Exam Neurological exam: Present alert, oriented X3 and normal gait Medical Decision Making Jorgito Inquiry Pt receiving controlled substance: No Jorgito was queried for this patient: No
[2023-04-27 17:31] VITALS: BP 132/65; PULSE 91; RESP 18; TEMP 37.3; O2SAT 98
== END 2023-04-27 17:32 | disposition home or self-care (01) ==
PROVIDERS: Emergency Provider Nurse Practitioner; PCP Internal Medicine
DX: J01.90 Acute sinusitis, unspecified (principal); R09.81 Nasal congestion; R09.82 Postnasal drip; I11.9 Hypertensive heart disease without heart failure; I25.10 Atherosclerotic heart disease of native coronary artery without angina pectoris; E78.5 Hyperlipidemia, unspecified; E11.9 Type 2 diabetes mellitus without complications; K21.9 Gastro-esophageal reflux disease without esophagitis; Z79.84 Long term (current) use of oral hypoglycemic drugs; Z79.85 Long-term (current) use of injectable non-insulin antidiabetic drugs
CPT/HCPCS: 99204; 99212; G0463

== ENCOUNTER 2023-07-16 08:28 | Outpatient (CLI) | payer BC, SELFPAY ==
[2023-07-16 08:36] LABS: Adenovirus F 40/41, stool Not Detected (NotDetected); Astrovirus Not Detected (NotDetected); Campylobacter Not Detected (NotDetected); Clostridium Difficile A/B, PCR Not Detected (NotDetected); Cryptosporidium Not Detected (NotDetected); Cyclospora Cayetanesis Not Detected (NotDetected); Entamoeba histolytica Not Detected (NotDetected); Enteroaggregative E coli Not Detected (NotDetected); Enteropathogenic E coli Not Detected (NotDetected); Enterotoxigenic E coli Not Detected (NotDetected); Giardia lamblia Not Detected (NotDetected); Norovirus Not Detected (NotDetected); Plesimonas Shigalloides, PCR Not Detected (NotDetected); Rotavirus A Not Detected (NotDetected); Salmonella, PCR Not Detected (NotDetected); Sapovirus Not Detected (NotDetected); Shiga-like toxin E coli Not Detected (NotDetected); Shigella Enterovasive E coli Not Detected (NotDetected); Vibrio Cholerae Not Detected (NotDetected); Vibrio, PCR Not Detected (NotDetected); Yersinia Entercolitica, PCR Not Detected (NotDetected)
== END 2023-07-16 23:59 | disposition home or self-care (01) ==
LOC: LAB 08:29
PROVIDERS: PCP Internal Medicine; Visit Provider Internal Medicine
DX: K52.89 Other specified noninfective gastroenteritis and colitis (principal)
CPT/HCPCS: 87205; 87507

== ENCOUNTER 2023-10-19 15:25 | Outpatient (CLI) | payer BC, SELFPAY ==
[2023-10-19 18:58] LABS: Alanine Aminotransferase 29 U/L (12-78); Albumin/Globulin Ratio 1.3 (1.1-1.8); Alkaline Phosphatase 68 U/L (38-126); Anion Gap 10.5 mEq/L (5-15); Aspartate Amino Transferase 26 U/L (17-59); Bilirubin,Total 0.6 mg/dl (0.2-1.3); Blood Urea Nitrogen 12 mg/dl (9-20); Calcium 9.1 mg/dl (8.4-10.2); Carbon Dioxide 28 mmol/L (22.0-30.0); Chloride 100 mmol/L (98-107); Chol/HDL Ratio 3.9 (1-3.5); Cholesterol 140 mg/dl (140-200); Estimated Glomerular Filt Rate 137 ml/min (>60); GFR (African American) 165 ML/MIN (>60); Globulin 3.1 g/dL (1.3-3.2); Glucose 72 mg/dl (74-100); HDL Cholesterol 36 mg/dl (40-60); Potassium 4.5 mmoL/L (3.5-5.1); Sodium 134 mmol/L (136-145); Total Protein,Serum 7.1 g/dl (6.3-8.2); Triglycerides 123 mg/dl (30-150); VLDL Cholesterol 25 mg/dL (0-40)
[2023-10-19 19:09] LABS: Direct LDL Cholesterol 71.59 mg/dL (100-129)
[2023-10-19 19:18] LABS: Hemoglobin A1C 6.8 % (4.0-6.0)
[2023-10-19 19:32] LABS: Prostate Specific Ag Screen 3.2 ng/ml (0.0-4.0)
== END 2023-10-19 23:59 | disposition home or self-care (01) ==
LOC: LAB.DROPOF 10-20 11:17
PROVIDERS: PCP Internal Medicine; Visit Provider Internal Medicine
DX: E11.59 Type 2 diabetes mellitus with other circulatory complications (principal); E78.5 Hyperlipidemia, unspecified; Z12.5 Encounter for screening for malignant neoplasm of prostate; Z79.84 Long term (current) use of oral hypoglycemic drugs; Z79.85 Long-term (current) use of injectable non-insulin antidiabetic drugs
CPT/HCPCS: 80053; 80061; 83036; G0103

== ENCOUNTER 2024-04-18 16:00 | Outpatient (CLI) | payer BC, SELFPAY ==
[2024-04-18 17:18] LABS: Basophils # 0.1 K/mm3 (0-0.2); Basophils % 0.5 % (0.1-2.0); Eosinophils # 0.1 K/mm3 (0.0-0.4); Eosinophils % 0.9 % (0.1-12.0); Hematocrit 45.6 % (42.0-52.0); Hemoglobin 15.2 g/dL (14.1-18.0); Lymphocytes # 2.4 K/mm3 (0.7-4.5); Lymphocytes % 20.9 % (10-50); Mean Corpuscular HGB Conc 33.3 g/dL (31.8-35.4); Mean Platelet Volume 9.1 fl (7.4-10.4); Monocytes % 8.8 % (1.7-9.3); Neutrophils % 68.6 % (37.0-80.0); Platelet Count 284 K/mm3 (142-424); Red Blood Count 5.24 M/mm3 (4.60-6.20); Red Cell Distribution Width 12.8 % (11.5-17.5); White Blood Count 11.7 K/mm3 (4.8-10.8)
[2024-04-18 17:30] LABS: Microalbumin/Creatinine Ratio 9.7
[2024-04-18 17:32] LABS: Creatinine,Urine Random 84 mg/dL (Not Estab.)
[2024-04-18 17:55] LABS: Alanine Aminotransferase 35 U/L (12-78); Albumin Level 4.5 g/dl (3.5-5.0); Albumin/Globulin Ratio 1.9 (1.1-1.8); Alkaline Phosphatase 72 U/L (38-126); Anion Gap 16.2 mEq/L (5-15); Aspartate Amino Transferase 30 U/L (17-59); Bilirubin,Total 0.9 mg/dl (0.2-1.3); Blood Urea Nitrogen 16 mg/dl (9-20); Calcium 9.1 mg/dl (8.4-10.2); Carbon Dioxide 28 mmol/L (22.0-30.0); Chloride 94 mmol/L (98-107); Chol/HDL Ratio 2.9 (1-3.5); Cholesterol 103 mg/dl (140-200); Estimated Glomerular Filt Rate 114 ml/min (>60); GFR (African American) 138 ML/MIN (>60); Globulin 2.4 g/dL (1.3-3.2); Glucose 67 mg/dl (74-100); HDL Cholesterol 35 mg/dl (40-60); Potassium 4.2 mmoL/L (3.5-5.1); Sodium 134 mmol/L (136-145); Total Protein,Serum 6.9 g/dl (6.3-8.2); Triglycerides 120 mg/dl (30-150); VLDL Cholesterol 24 mg/dL (0-40)
[2024-04-18 18:05] LABS: Direct LDL Cholesterol 41.11 mg/dL (100-129)
[2024-04-18 18:13] LABS: Hemoglobin A1C 6.6 % (4.0-6.0)
== END 2024-04-18 23:59 | disposition home or self-care (01) ==
LOC: LAB.DROPOF 04-19 12:50
PROVIDERS: PCP Internal Medicine; Visit Provider Internal Medicine
DX: E78.5 Hyperlipidemia, unspecified (principal); I10 Essential (primary) hypertension; E11.42 Type 2 diabetes mellitus with diabetic polyneuropathy; Z87.891 Personal history of nicotine dependence; Z79.84 Long term (current) use of oral hypoglycemic drugs; Z79.85 Long-term (current) use of injectable non-insulin antidiabetic drugs
CPT/HCPCS: 80053; 80061; 82043; 82570; 83036; 85025

== ENCOUNTER 2024-10-18 08:51 | Outpatient (CLI) | payer BC, SELFPAY ==
[2024-10-18 18:10] LABS: Alanine Aminotransferase 37 U/L (12-78); Albumin Level 4.5 g/dl (3.5-5.0); Albumin/Globulin Ratio 1.7 (1.1-1.8); Alkaline Phosphatase 84 U/L (38-126); Anion Gap 12.1 mEq/L (5-15); Aspartate Amino Transferase 33 U/L (17-59); Bilirubin,Total 0.7 mg/dl (0.2-1.3); Blood Urea Nitrogen 10 mg/dl (9-20); Calcium 9.4 mg/dl (8.4-10.2); Carbon Dioxide 31 mmol/L (22.0-30.0); Chloride 97 mmol/L (98-107); Cholesterol 106 mg/dl (140-200); Creatinine,Serum 0.70 mg/dl (0.66-1.25); Estimated Glomerular Filt Rate 114 ml/min (>60); GFR (African American) 138 ML/MIN (>60); Globulin 2.7 g/dL (1.3-3.2); Glucose 89 mg/dl (74-100); HDL Cholesterol 39 mg/dl (40-60); Potassium 5.1 mmoL/L (3.5-5.1); Sodium 135 mmol/L (136-145); Total Protein,Serum 7.2 g/dl (6.3-8.2); Triglycerides 94 mg/dl (30-150)
[2024-10-18 20:44] LABS: Hemoglobin A1C 7.1 % (4.0-6.0)
== END 2024-10-18 23:59 | disposition home or self-care (01) ==
LOC: LAB.DROPOF 10-23 08:52
PROVIDERS: PCP Internal Medicine; Visit Provider Internal Medicine
DX: E11.59 Type 2 diabetes mellitus with other circulatory complications (principal); E11.42 Type 2 diabetes mellitus with diabetic polyneuropathy; E78.5 Hyperlipidemia, unspecified; I10 Essential (primary) hypertension
CPT/HCPCS: 80053; 80061; 83036

== ENCOUNTER 2025-01-28 07:34 | Outpatient (CLI) | payer BC, SELFPAY ==
--- OUTSIDE RECORDS SUMMARY | 2025-01-28 07:37 | XMS_ITS ---
Author Organization Unknown ENCOUNTERS Encounter Performer Location Date Diagnosis Diagnosis Status Emergency [facility] [address] [place] [address] [id number] [facility] Pre Admit [facility] [address] [place] [address] [id number] Emergency [facility] [address] [place] [id number] [facility] Emergency [facility] [address] [place] [id number] [facility] *Note: Encounters from your own facility or health system may be excluded. Allergies, Adverse Reactions, Alerts Allergen Type Severity Identification Date Medications Name Date Quantity Days Supplied GPI Number
[2025-01-28 08:15] VITALS: PULSE 84; PULSE 87
[2025-01-28] MEDS: ALBUTEROL 0.083% 2.5 MG/3 ML NEB IH (08:15)
== END 2025-01-28 23:59 | disposition home or self-care (01) ==
LOC: RT 07:35
PROVIDERS: PCP Internal Medicine; Visit Provider Internal Medicine
DX: R94.2 Abnormal results of pulmonary function studies (principal); R06.2 Wheezing
CPT/HCPCS: 94060; 94640